=== PATIENT | male | born 1955 | race Asian ===

== ENCOUNTER 2022-02-03 05:02 | Day surgery (SDC) | payer BC ==
[2022-02-01 14:24] VITALS: BMI 27.4
[2022-02-03] MEDS ORDERED: BUPIVACAINE HCL 50 ML ONE ×2 (07:27→07:29)
[2022-02-03] MEDS ORDERED: LIDOCAINE HCL/PF 1% SDV 5ML VIAL ONE (07:27)
[2022-02-03] MEDS ORDERED: LIDOCAINE 1%/EPI 1:100000 (20 ML MULTI DOSE VIAL) ONE (07:28)
[2022-02-03] MEDS ORDERED: MIDAZOLAM HCL 2 MG/2 ML SINGLE DOSE VIAL ONE (07:46)
[2022-02-03] MEDS ORDERED: SUCCINYLCHOLINE CHLORIDE 200 MG/10 ML SYRINGE ONE (07:46)
[2022-02-03] MEDS ORDERED: PROPOFOL 20 ML ONE (07:46)
[2022-02-03] MEDS ORDERED: ceFAZolin SODIUM 1 GM VIAL IVPB ONE (08:40)
[2022-02-03] MEDS ORDERED: ceFAZolin SODIUM 1 GM VIAL ONE (08:43)
[2022-02-03] MEDS ORDERED: DEXAMETHASONE SOD PHOSPHATE 4 MG/1 ML VIAL ONE (08:43)
[2022-02-03] MEDS ORDERED: BUPIVACAINE HCL/PF 0.5% (5MG/ML) 10 ML VIAL IJ ONE (09:01)
[2022-02-03] MEDS ORDERED: LIDOCAINE 1%/EPI 1:100000 (20 ML MULTI DOSE VIAL) IJ ONE (09:01)
[2022-02-03] MEDS ORDERED: SEVOFLURANE 250 ML BTL ONE (09:39)
[2022-02-03] MEDS ORDERED: oxyCODONE HCL 5 MG TABLET PO PRN (10:59)
[2022-02-03] MEDS ORDERED: ONDANSETRON 4 MG/2 ML VIAL IVPUSH PRN (10:59)
[2022-02-03] MEDS ORDERED: LACTATED RINGERS SOLUTION 1,000 ML IV SCH ×2 (11:00→11:15)
[2022-02-03] MEDS ORDERED: ACETAMINOPHEN 1000 MG/100 ML BAG IVPB PRN (11:00)
[2022-02-03] MEDS ORDERED: oxyCODONE HCL 5 MG TABLET ONE (13:45)
[2022-02-03 14:11] VITALS: RESP 18
[2022-02-03 15:16] VITALS: BP 129/81; PULSE 91; TEMP 97.5
== END 2022-02-03 16:15 | disposition home or self-care (01) ==
LOC: JASU-SURG 05:02
PROVIDERS: ATTEND Surgery
PROC: 0GBJ0ZZ Excision of Thyroid Gland Isthmus, Open Approach (ICD-10-PCS; 2022-02-03)
PROC: 0GTK0ZZ Resection of Thyroid Gland, Open Approach (ICD-10-PCS; principal; 2022-02-03 08:00)
DX: C73 Malignant neoplasm of thyroid gland (principal)
CPT/HCPCS: 88307-TC; 94760